=== PATIENT | female | born 1990 | race Caucasian/White ===

== ENCOUNTER 2017-05-15 17:09 | Emergency (ER) | payer OTHER ==
--- NOTE | 2017-05-15 17:34 | PDOC ---
Rapid Medical Evaluation Medical Evaluation: Allergies Allergy/AdvReac Type Severity Reaction Status Date / Time No Known Allergies Allergy Verified 06/13/16 21:05 05/15/17 17:32 Pt presents to the ED: pain to left upper leg/hip x 2 yrs after falling, no deformity, takes no meds for it, worse with the cold air Pt on brief exam: ambulatory, no deformity. Pt ordered for: none Pt to proceed to the ED Discharge Disposition - Diagnosis Leg pain - Referrals - Patient Instructions - Post Discharge Activity
[2017-05-15 17:36] VITALS: BP 137/78; PULSE 101; TEMP 98.6; BMI 20.3
--- NOTE | 2017-05-15 19:00 | PDOC ---
History of Present Illness - General Chief Complaint: Pain Stated Complaint: LT LEG PAIN Time Seen by Provider: 05/15/17 17:32 History Source: Patient Exam Limitations: No Limitations - History of Present Illness Initial Comments: 05/15/17 19:28 26-year-old female with no medical history presents to the emergency department complaining of right hip pain. Patient states she slipped and fell 2-3 years ago and landed on her right hip. Patient states pain is described as 2/10 dull nonradiating intermittent discomfort which is exacerbated during the cold weather but alleviated at rest. Patient states she seen an orthopedic surgeon 3 years ago and was told that she has a contusion and to take Tylenol or Motrin for the pain. Patient denies any new injury/fall/trauma. Patient denies neck/ back pain, no extremity numbness or tingling sensation. Timing/Duration: other (x2-3 years) Past History - Past Medical History Allergies/Adverse Reactions: Allergies Allergy/AdvReac Type Severity Reaction Status Date / Time No Known Allergies Allergy Verified 05/15/17 17:33 Home Medications: Ambulatory Orders NK [No Known Home Medication] 05/15/17 Asthma: No Cancer: No Cardiac Disorders: No COPD: No Diabetes: No HTN: No Seizures: No Thyroid Disease: No Other medical history: DENIES. - Suicide/Smoking/Psychosocial Hx Smoking History: Never smoked Have you smoked in the past 12 months: No Hx Alcohol Use: No Drug/Substance Use Hx: No Hx Substance Use Treatment: No Review of Systems - Review of Systems Able to Perform ROS?: Yes Comments:: 05/15/17 19:01 CONSTITUTIONAL: Absent: fever, chills, diaphoresis, generalized weakness, malaise, loss of appetite HEENT: Absent: rhinorrhea, nasal congestion, throat pain, throat swelling, difficulty swallowing, mouth swelling, ear pain, eye pain, visual Changes CARDIOVASCULAR: Absent: chest pain, loss of consciousness, palpitations, irregular heart rate, peripheral edema RESPIRATORY: Absent: cough, shortness of breath, dyspnea with exertion, orthopnea, wheezing, stridor, hemoptysis GASTROINTESTINAL: Absent: abdominal pain, abdominal distension, nausea, vomiting, diarrhea, constipation, melena, hematochezia GENITOURINARY: Absent: dysuria, frequency, urgency, hesitancy, hematuria, flank pain, genital pain MUSCULOSKELETAL: Absent: myalgia, arthralgia, joint swelling SKIN: Absent: rash, itching, pallor HEMATOLOGIC/IMMUNOLOGIC: Absent: easy bleeding, easy bruising, lymphadenopathy, frequent infections ENDOCRINE: Absent: unexplained weight gain, unexplained weight loss, heat intolerance, cold intolerance NEUROLOGIC: Absent: headache, focal weakness or paresthesias, dizziness, unsteady gait, seizure, mental status changes, bladder or bowel incontinence PSYCHIATRIC: Absent: anxiety, depression, suicidal or homicidal ideation, hallucinations. Is the patient limited [place] proficient: No *Physical Exam - Vital Signs Last Vital Signs Temp Pulse Resp BP Pulse Ox 98.6 F 101 H 19 137/78 98 05/15/17 17:33 05/15/17 17:33 05/15/17 17:33 05/15/17 17:33 05/15/17 17:33 - Physical Exam Comments: 05/15/17 19:01 GENERAL: Well developed, well nourished. Awake and alert. No acute distress. HEENT: Normocephalic, atraumatic. PERRLA, EOMI. No conjunctival pallor. Sclera are non- icteric. Moist mucous membranes. Oropharynx is clear. NECK: Supple. Full ROM. No JVD. Carotid pulses 2+ and symmetric, without bruits. No thyromegaly. No lymphadenopathy. CARDIOVASCULAR: Regular rate and rhythm. No murmurs, rubs, or gallops. Distal pulses are 2+ and symmetric. PULMONARY: No evidence of respiratory distress. Lungs clear to auscultation bilaterally. No wheezing, rales or rhonchi. ABDOMINAL: Soft. Non-tender. Non-distended. No rebound or guarding. No organomegaly. Normoactive bowel sounds. MUSCULOSKELETAL Normal range of motion at all joints. No bony deformities or tenderness. No CVA tenderness. EXTREMITIES: No cyanosis. No clubbing. No edema. No calf tenderness. SKIN: Warm and dry. Normal capillary refill. No rashes. No jaundice. NEUROLOGICAL: Alert, awake, appropriate. Cranial nerves 2-12 intact. No deficits to light touch and temperature in face, upper extremities and lower extremities. No motor deficits in the in face, upper extremities and lower extremities. Normoreflexic in the upper and lower extremities. Normal speech. Toes are down- going bilaterally. Gait is normal without ataxia. PSYCHIATRIC: Cooperative. Good eye contact. Appropriate mood and affect. Patient ambulating well in the emergency department and was seen hopping up and down while carrying her young child. *DC/Admit/Observation/Transfer Diagnosis at time of Disposition: Chronic right hip pain - Discharge Dispostion Disposition: HOME Condition at time of disposition: Stable Admit: No - Referrals Referrals: Shaylee Jacobson MD [Primary Care Provider] - - Patient Instructions Printed Discharge Instructions: DI for Chronic Pain -- Adult Additional Instructions: Tylenol or motrin as needed for pain Rest Elevate Follow up with your orthopedic surgeon or the one listed on the discharge form. Return to the ER for severe/persistent/worsening symptoms, extremity numbness/ tingling sensation. - Post Discharge Activity
== END 2017-05-15 19:03 | disposition home or self-care (01) ==
LOC: JERFT 17:09
DX: M25.511 Pain in right shoulder (principal); G89.29 Other chronic pain; Z91.81 History of falling
CPT/HCPCS: 99281-25

== ENCOUNTER 2017-12-04 13:56 | Emergency (ER) | payer OTHER ==
[2017-12-04 14:14] VITALS: BP 136/84; PULSE 100; TEMP 97.8; BMI 23.3
--- NOTE | 2017-12-04 14:41 | PDOC ---
History of Present Illness - General Chief Complaint: Chest Pain Stated Complaint: CHEST PAIN Time Seen by Provider: 12/04/17 14:34 History Source: Patient Exam Limitations: No Limitations Past History - Past Medical History Allergies/Adverse Reactions: Allergies Allergy/AdvReac Type Severity Reaction Status Date / Time No Known Allergies Allergy Verified 05/15/17 17:33 Home Medications: Ambulatory Orders NK [No Known Home Medication] 05/15/17 Asthma: No Cancer: No Cardiac Disorders: No CVA: No COPD: No Diabetes: No HTN: No Seizures: No Thyroid Disease: No Other medical history: DENIES - Suicide/Smoking/Psychosocial Hx Smoking History: Never smoked Have you smoked in the past 12 months: No Hx Alcohol Use: No Drug/Substance Use Hx: No Hx Substance Use Treatment: No *Physical Exam - Vital Signs Last Vital Signs Temp Pulse Resp BP Pulse Ox 97.8 F 100 H 18 136/84 99 12/04/17 14:10 12/04/17 14:10 12/04/17 14:10 12/04/17 14:10 12/04/17 14:10 *DC/Admit/Observation/Transfer - Referrals Referrals: Shaylee Jacobson MD [Primary Care Provider] - - Patient Instructions - Post Discharge Activity
--- NOTE | 2017-12-04 14:55 | PDOC ---
History of Present Illness - General Chief Complaint: Chest Pain Stated Complaint: CHEST PAIN Time Seen by Provider: 12/04/17 14:34 - History of Present Illness Initial Comments: 26-year-old female without comorbidities presents for evaluation of chest pain 3 days. She describes her pain as sharp exacerbated deep breathing minimally relieved with rest. No radiation of symptoms. She points to the left sternal border and the left breast as the area of her discomfort 12/04/17 14:53 Past History - Past Medical History Allergies/Adverse Reactions: Allergies Allergy/AdvReac Type Severity Reaction Status Date / Time No Known Allergies Allergy Verified 05/15/17 17:33 Home Medications: Ambulatory Orders NK [No Known Home Medication] 05/15/17 Asthma: No Cancer: No Cardiac Disorders: No CVA: No COPD: No Diabetes: No HTN: No Seizures: No Thyroid Disease: No Other medical history: DENIES - Suicide/Smoking/Psychosocial Hx Smoking History: Never smoked Have you smoked in the past 12 months: No Hx Alcohol Use: No Drug/Substance Use Hx: No Hx Substance Use Treatment: No Review of Systems - Review of Systems Cardiac (ROS): Yes: See HPI, Chest Pain All Other Systems: Reviewed and Negative *Physical Exam - Vital Signs Last Vital Signs Temp Pulse Resp BP Pulse Ox 97.8 F 100 H 18 136/84 99 12/04/17 14:10 12/04/17 14:10 12/04/17 14:10 12/04/17 14:10 12/04/17 14:10 - Physical Exam Comments: GENERAL: The patient is awake, alert, and fully oriented, in no acute distress. HEAD: Normal with no signs of trauma. EYES: sclera anicteric, conjunctiva clear. ENT: Ears normal NECK: Normal range of motion LUNGS: Breath sounds equal, clear to auscultation bilaterally. No wheezes, and no crackles. HEART: S1 and S2 without murmur, rub or gallop. ABDOMEN: Soft, nontender, normoactive bowel sounds. No guarding, no rebound. No masses. EXTREMITIES: Normal range of motion, no edema. No clubbing or cyanosis. No cords, erythema, or tenderness. NEUROLOGICAL: Cranial nerves II through XII grossly intact. Normal speech, normal gait. PSYCH: Normal mood, normal affect. SKIN: Warm, Dry, normal turgor, no rashes or lesions noted. 12/04/17 14:54 ED Treatment Course - LABORATORY CBC & Chemistry Diagram: 12/04/17 15:05 12/04/17 15:05 Medical Decision Making - Medical Decision Making I will do a d-dimer on this 26-year-old female with pleuritic chest pain with no risk factors for PE she is tachycardic 12/04/17 14:54 12/04/17 17:46 CT is negative this is most likely costochondritis I will send her home with an anti-inflammatory and close primary care follow-up *DC/Admit/Observation/Transfer Diagnosis at time of Disposition: Costochondral chest pain - Discharge Dispostion Disposition: HOME Condition at time of disposition: Stable Decision to Admit order: No - Referrals Referrals: Shaylee Jacobson MD [Primary Care Provider] - - Patient Instructions Printed Discharge Instructions: DI for Atypical Chest Pain, Costochondritis, DI for Costochondritis Additional Instructions: Your CAT scan today was normal. Please return to the emergency room should her symptoms worsen or go unresolved. Follow-up with your primary care physician in one to 2 days for further evaluation and treatment options. He may take Tylenol and Motrin for the pain as directed. - Post Discharge Activity
[2017-12-04 15:11] LABS: BASO % 1.1 % (0-2.0); EOS % 0.9 % (0-4.5); HEMATOCRIT 36.9 % (32.4-45.2); HEMOGLOBIN 12.2 GM/dL (10.7-15.3); MCH 27.5 pg (25.7-33.7); MEAN CELL VOLUME 83.4 fl (80-96); MEAN PLT VOLUME 10.5 fl (7.5-11.1); MONO % 5.5 % (3.8-10.2); NEUT % 58.5 % (42.8-82.8); PLATELET COUNT 167 K/MM3 (134-434); RBC 4.43 M/mm3 (3.60-5.2); RDW 15.1 % (11.6-15.6); WHITE BLOOD COUNT 8.7 K/mm3 (4.0-10.0)
[2017-12-04 15:29] LABS: CHLORIDE 108 mmol/L (98-107); POTASSIUM 3.8 mmol/L (3.5-5.1); SODIUM 142 mmol/L (136-145)
[2017-12-04 15:36] LABS: ALBUMIN 4.2 g/dl (3.4-5.0); ANION GAP 6 (8-16); BILIRUBIN,TOTAL 0.3 mg/dL (0.2-1.0); BLOOD UREA NITROGEN 13 mg/dL (7-18); CALCIUM 9.2 mg/dL (8.5-10.1); CO2 28 mmol/L (21-32); CREATININE 0.7 mg/dL (0.55-1.02); GLUCOSE,RANDOM 92 mg/dL (74-106); SGOT/AST 15 U/L (15-37); SGPT/ALT 33 U/L (12-78); TOT PROT 7.8 g/dl (6.4-8.2)
[2017-12-04 15:37] LABS: ALK PHOS 71 U/L (45-117)
--- NOTE | 2017-12-06 11:19 | EKG ---
Test Reason : Blood Pressure : / mmHG Vent. Rate : 086 BPM Atrial Rate : 086 BPM P-R Int : 134 ms QRS Dur : 084 ms QT Int : 342 ms P-R-T Axes : 044 001 037 degrees QTc Int : 409 ms NORMAL SINUS RHYTHM NORMAL ECG NO PREVIOUS ECGS AVAILABLE Confirmed by LILLIAN CROCKER, YESSICA ([id number]) on 12/06/2017 11:19:14 AM Referred By: Confirmed By:YESSICA SNYDER MD
== END 2017-12-04 17:56 | disposition home or self-care (01) ==
LOC: JERFT 13:56
DX: M94.0 Chondrocostal junction syndrome [Tietze] (principal)
CPT/HCPCS: 36415; 71275-TC; 80053; 84703; 85025; 85379; 93005; 93010; 99281-25

== ENCOUNTER 2018-11-10 22:18 | Emergency (ER) | payer OTHER ==
[2018-11-10 22:38] VITALS: BMI 22.4
--- NOTE | 2018-11-10 22:55 | PDOC ---
History of Present Illness - General Chief Complaint: Pain Stated Complaint: ABD PAIN Time Seen by Provider: 11/10/18 22:54 - History of Present Illness Initial Comments: 11/10/18 23:39 Ms. Henry is a 27 yo female w/ no significant pmh who presents for evaluation of 3 day history of LUQ abdominal pain. Patient denies any trauma to area however reports she has been nauseated twice today. Presents as pain got worse today and her sister who is accompanying her urged her to come. Denies any other symptoms at this time including shortness of breath. The patient denies chest pain, shortness of breath, headache and dizziness. Denies fever, chills, vomit, diarrhea and constipation. Denies dysuria, frequency, urgency and hematuria. Past History - Past Medical History Allergies/Adverse Reactions: Allergies Allergy/AdvReac Type Severity Reaction Status Date / Time No Known Allergies Allergy Verified 11/10/18 22:38 Home Medications: Ambulatory Orders NK [No Known Home Medication] 05/15/17 Asthma: No Cancer: No Cardiac Disorders: No CVA: No COPD: No Diabetes: No HTN: No Seizures: No Thyroid Disease: No - Suicide/Smoking/Psychosocial Hx Smoking History: Never smoked Have you smoked in the past 12 months: No Hx Alcohol Use: No Drug/Substance Use Hx: No Hx Substance Use Treatment: No Review of Systems - Review of Systems Comments:: 11/10/18 23:43 GENERAL/CONSTITUTIONAL: No fever or chills. No weakness. HEAD, EYES, EARS, NOSE AND THROAT: No change in vision. No ear pain or discharge. No sore throat. CARDIOVASCULAR: No chest pain or shortness of breath RESPIRATORY: No cough, wheezing, or hemoptysis. GASTROINTESTINAL: +LUQ abdominal pain w/ nausea x2 today now resolved. No vomiting, diarrhea or constipation. GENITOURINARY: No dysuria, frequency, or change in urination. MUSCULOSKELETAL: No joint or muscle swelling or pain. No neck or back pain. SKIN: No rash NEUROLOGIC: No headache, vertigo, loss of consciousness, or change in strength/ sensation. ENDOCRINE: No increased thirst. No abnormal weight change HEMATOLOGIC/LYMPHATIC: No anemia, easy bleeding, or history of blood clots. ALLERGIC/IMMUNOLOGIC: No hives or skin allergy. *Physical Exam - Vital Signs Last Vital Signs Temp Pulse Resp BP Pulse Ox 98.1 F 94 H 18 131/74 97 11/10/18 22:35 11/10/18 22:35 11/10/18 22:35 11/10/18 22:35 11/10/18 22:35 - Physical Exam Comments: 11/10/18 23:47 GENERAL: Awake, alert, and fully oriented, in no acute distress HEAD: No signs of trauma, normocephalic, atraumatic EYES: PERRLA, EOMI, sclera anicteric, conjunctiva clear ENT: Auricles normal inspection, hearing grossly normal, nares patent, oropharynx clear without exudates. Moist mucosa NECK: Normal ROM, supple, no lymphadenopathy, JVD, or masses LUNGS: No distress, speaks full sentences, clear to auscultation bilaterally HEART: Regular rate and rhythm, normal S1 and S2, no murmurs, rubs or gallops, peripheral pulses normal and equal bilaterally. ABDOMEN: +Diffuse abdominal TTP, greatest in LUQ. Otherwise soft, normoactive bowel sounds. No guarding, no rebound. No masses EXTREMITIES: Normal inspection, Normal range of motion, no edema. No clubbing or cyanosis. NEUROLOGICAL: Cranial nerves II through XII grossly intact. Normal speech, normal gait, no focal sensorimotor deficits SKIN: Warm, Dry, normal turgor, no rashes or lesions noted. ED Treatment Course - LABORATORY CBC & Chemistry Diagram: 11/10/18 23:35 11/10/18 23:35 Medical Decision Making - Medical Decision Making 11/11/18 02:08 Ms. Henry is a 27 yo female w/ pmh as described who presents for evaluation of non-specific abdominal pain. Patient evaluated with labs as below for r/o infectious vs. electrolyte vs. cardiac causes. Patient labs grossly wnl. Patient evaluated with CT abd/pelvis w/ findings of L 3.6cm ovarian cyst w/ trace fluid and bilateral sacroilitis. No concern for other acute process. Patient will be discharged to home for further outpatient evaluation as needed by AMBULATORY CARE NURSE. Laboratory Results - last 24 hr 11/10/18 11/10/18 11/10/18 23:35 23:35 23:35 WBC 10.2 H RBC 4.50 Hgb 11.9 Hct 36.8 MCV 82.0 MCH 26.4 MCHC 32.2 RDW 16.8 H Plt Count 178 MPV 10.8 Absolute Neuts (auto) 5.8 Neutrophils % 56.8 Lymphocytes % 35.2 Monocytes % 5.8 Eosinophils % 1.3 Basophils % 0.9 Nucleated RBC % 0 Sodium 140 Potassium 3.8 Chloride 106 Carbon Dioxide 26 Anion Gap 7 L BUN 10.4 Creatinine 0.7 Est GFR (CKD-EPI)AfAm 135.70 Est GFR (CKD-EPI)NonAf 117.08 Random Glucose 97 Calcium 8.9 Total Bilirubin 0.3 AST 18 ALT 27 Alkaline Phosphatase 71 Creatine Kinase Troponin I Total Protein 7.7 Albumin 4.1 Urine Color Yellow Urine Appearance Clear Urine pH 7.0 Ur Specific [place] 1.008 L Urine Protein Negative Urine Glucose (UA) Negative Urine Ketones Negative Urine Blood Negative Urine Nitrite Negative Urine Bilirubin Negative Urine Urobilinogen 0.2 Ur Leukocyte Esterase Negative Urine HCG, Qual Negative 11/10/18 23:35 WBC RBC Hgb Hct MCV MCH MCHC RDW Plt Count MPV Absolute Neuts (auto) Neutrophils % Lymphocytes % Monocytes % Eosinophils % Basophils % Nucleated RBC % Sodium Potassium Chloride Carbon Dioxide Anion Gap BUN Creatinine Est GFR (CKD-EPI)AfAm Est GFR (CKD-EPI)NonAf Random Glucose Calcium Total Bilirubin AST ALT Alkaline Phosphatase Creatine Kinase 66 Troponin I < 0.02 Total Protein Albumin Urine Color Urine Appearance Urine pH Ur Specific [place] Urine Protein Urine Glucose (UA) Urine Ketones Urine Blood Urine Nitrite Urine Bilirubin Urine Urobilinogen Ur Leukocyte Esterase Urine HCG, Qual *DC/Admit/Observation/Transfer Diagnosis at time of Disposition: Abdominal pain Qualifiers: Abdominal location: unspecified location Qualified Code(s): R10.9 - Unspecified abdominal pain - Discharge Dispostion Disposition: HOME - Referrals - Patient Instructions Printed Discharge Instructions: DI for Abdominal Pain-Adult Additional Instructions: You were evaluated today in the ER for your pain. We performed laboratory evaluation as well as CT Abdomen/Pelvis and found you to have a 3.6cm L ovarian cyst. No other emergent findings were discovered and we believe you are safe for discharge home. Please follow-up with AMBULATORY CARE NURSE early next week for further evaluation. You may take motrin or tylenol per package instructions for further pain control. Return to ER if any fever, chills, increase in pain, or other concerning symptoms. - Post Discharge Activity
[2018-11-10] MEDS ORDERED: SODIUM CHLORIDE 1,000 ML IV STA (23:16)
[2018-11-10] MEDS ORDERED: ACETAMINOPHEN 1000 MG/100 ML VIAL (NON FORMULARY) IVPB ONE (23:17)
[2018-11-10] MEDS ORDERED: ACETAMINOPHEN INJECTION 100 ML IVPB ONE (23:23)
[2018-11-10 23:49] LABS: URINE APPEARANCE CLEAR; URINE BILIRUBIN NEGATIVE (NEGATIVE); URINE COLOR YELLOW; URINE GLUCOSE (UA) NEGATIVE (NEGATIVE); URINE KETONE NEGATIVE (NEGATIVE); URINE LEUK ESTERASE NEGATIVE (NEGATIVE); URINE NITRITE NEGATIVE (NEGATIVE); URINE PROTEIN NEGATIVE (NEGATIVE); URINE UROBILINOGEN 0.2 mg/dL (0.2-1.0)
[2018-11-10 23:52] LABS: BASO % 0.9 % (0-2.0); EOS % 1.3 % (0-4.5); HCG,QUALITATIVE URINE Negative; HEMATOCRIT 36.8 % (32.4-45.2); HEMOGLOBIN 11.9 GM/dL (10.7-15.3); LYMPH % 35.2 % (8-40); MCH 26.4 pg (25.7-33.7); MCHC 32.2 g/dl (32.0-36.0); MONO % 5.8 % (3.8-10.2); NEUT % 56.8 % (42.8-82.8); RDW 16.8 % (11.6-15.6); WHITE BLOOD COUNT 10.2 K/mm3 (4.0-10.0)
[2018-11-11 00:03] LABS: PLATELET COUNT 178 K/MM3 (134-434)
[2018-11-11 00:04] LABS: MEAN PLT VOLUME 10.8 fl (7.5-11.1)
[2018-11-11] MEDS ORDERED: FAMOTIDINE 20 MG/50 ML IVPB 20 MG/50 ML MG IVPB ONE (00:16)
[2018-11-11] MEDS ORDERED: MAG HYDROX/AL HYDROX/SIMETH 30 ML UNIT-DOSE CUP PO ONE (00:16)
[2018-11-11 00:19] LABS: ALBUMIN 4.1 g/dl (3.4-5.0); BILIRUBIN,TOTAL 0.3 mg/dL (0.2-1); BLOOD UREA NITROGEN 10.4 mg/dL (7-18); CALCIUM 8.9 mg/dL (8.5-10.1); CREATININE 0.7 mg/dL (0.55-1.3); POTASSIUM 3.8 mmol/L (3.5-5.1); TOT PROT 7.7 g/dl (6.4-8.2)
[2018-11-11] MEDS ORDERED: MAG HYDROX/AL HYDROX/SIMETH 30 ML UNIT-DOSE CUP ONE (00:22)
--- NOTE | 2018-11-11 00:22 | PDOC ---
Attending Attestation - Resident Resident Name: Med Aqiuno - ED Attending Attestation I have performed the following: I have examined & evaluated the patient, The case was reviewed & discussed with the resident, I agree w/resident's findings & plan, Exceptions are as noted - HPI HPI: 11/11/18 00:17 27 F with no PMH presents to ED with LUQ pain. Pt states it started 3 days ago. It is non-radiating, constant. Not exacerbated by food. Worse with movement. Pt denies CP/SOB. Denies N/V/D. Denies dysuria. Denies any prior surgeries. - Physicial Exam PE: 11/11/18 00:18 "GENERAL: Awake, alert, and fully oriented, in no acute distress. HEAD: No signs of trauma EYES: PERRLA, EOMI, sclera anicteric, conjunctiva clear ENT: Auricles normal inspection, hearing grossly normal, nares patent, oropharynx clear without exudates. Moist mucosa NECK: Nontender, no stepoffs, Normal ROM, supple, no lymphadenopathy, JVD, or masses LUNGS: Breath sounds equal, clear to auscultation bilaterally. No wheezes, and no crackles HEART: Regular rate and rhythm, normal S1 and S2, no murmurs, rubs or gallops ABDOMEN: + diffuse TTP worst in LUQ, normoactive bowel sounds. No guarding, no rebound. No masses EXTREMITIES: Normal range of motion, no edema. No clubbing or cyanosis. No cords, erythema, or tenderness NEUROLOGICAL: Cranial nerves II through XII intact. 5/5 strength and sensation in all extremities, Normal speech, normal gait, normal cerebellar function SKIN: Warm, Dry, normal turgor, no rashes or lesions noted. - Medical Decision Making 11/11/18 00:21 27 F with LUQ pain. Suspect gastritis vs PUD. However, given diffuse abdominal tenderness, will obtain CT to r/o surgical process. - Labs, lipase - UA, UPT - GI cocktail - CTAP Labs unremarkable CT negative for acute process Pt is well appearing, with normal vitals. Clinically stable for DC at this time. I discussed the physical exam findings, ancillary test results and final diagnoses with the patient. I answered all of the patient's questions. The patient was satisfied with the care received and felt comfortable with the discharge plan and treatment plan. The patient agrees to follow up with the primary care physician within 24-72 hours.
[2018-11-11 02:25] VITALS: BP 110/67; PULSE 78; TEMP 98.6
--- NOTE | 2018-11-11 13:08 | EKG ---
Test Reason : Blood Pressure : / mmHG Vent. Rate : 084 BPM Atrial Rate : 084 BPM P-R Int : 146 ms QRS Dur : 092 ms QT Int : 356 ms P-R-T Axes : 051 004 036 degrees QTc Int : 420 ms NORMAL SINUS RHYTHM NORMAL ECG WHEN COMPARED WITH ECG OF 04-DEC-2017 14:09, NO SIGNIFICANT CHANGE WAS FOUND Confirmed by MD WHITING MOYSES ([id number]) on 11/11/2018 1:08:04 PM Referred By: Confirmed By:MAKENZIE WHITING MD
== END 2018-11-11 02:25 | disposition home or self-care (01) ==
LOC: JER 22:18
PROC: 3E033GC Introduction of Other Therapeutic Substance into Peripheral Vein, Percutaneous Approach (ICD-10-PCS; principal; 2018-11-10)
PROC: 3E033NZ Introduction of Analgesics, Hypnotics, Sedatives into Peripheral Vein, Percutaneous Approach (ICD-10-PCS; 2018-11-10)
DX: R10.9 Unspecified abdominal pain (principal)
CPT/HCPCS: 36415; 74177-TC; 80053; 81003; 82550; 84484; 84703; 85025; 87086; 93005; 93010; 96365; 96375; 99282-25; J0131; J7030

== ENCOUNTER 2019-06-11 16:41 | Emergency (ER) | payer OTHER ==
[2019-06-11] MEDS ORDERED: SODIUM CHLORIDE 1,000 ML IV STA (17:18)
[2019-06-11 17:19] VITALS: TEMP 98; BMI 22.4
--- NOTE | 2019-06-11 17:29 | PDOC ---
Rapid Medical Evaluation Chief Complaint: Pain, Acute Time Seen by Provider: 06/11/19 17:17 Medical Evaluation: Allergies Allergy/AdvReac Type Severity Reaction Status Date / Time No Known Allergies Allergy Verified 06/11/19 17:16 Vital Signs Temp Pulse Resp BP Pulse Ox 98 F 103 H 18 107/75 98 06/11/19 17:17 06/11/19 17:17 06/11/19 17:17 06/11/19 17:17 06/11/19 17:17 06/11/19 17:26 Pt c/o: 19 weeks , + dizziness , worse with standing, no other complaints Pt on brief exam: appears dry, pt ordered for: labs, urine, ekg, orthostatic, ivf Pt to proceed to the ED Discharge Disposition - Diagnosis Dizziness - Discharge Dispostion Disposition: HOME Condition at time of disposition: Improved - Referrals Referrals: Shaylee Jacobson MD [Primary Care Provider] - - Patient Instructions Printed Discharge Instructions: Eating for Appropriate Weight Gain During Additional Instructions: Drink plenty of fluids. Follow-up with your doctor as soon as possible Return to the emergency room for any worsening symptoms - Post Discharge Activity Work/School Note: Back to Work
[2019-06-11 17:43] LABS: BASO % 0.6 % (0-2.0); EOS % 0.6 % (0-4.5); HEMATOCRIT 37.3 % (32.4-45.2); HEMOGLOBIN 12.2 GM/dL (10.7-15.3); MCH 28.8 pg (25.7-33.7); MCHC 32.6 g/dl (32.0-36.0); MEAN CELL VOLUME 88.4 fl (80-96); MEAN PLT VOLUME 10.1 fl (7.5-11.1); MONO % 4.7 % (3.8-10.2); NEUT % 74.1 % (42.8-82.8); PLATELET COUNT 170 K/MM3 (134-434); RBC 4.22 M/mm3 (3.60-5.2); WHITE BLOOD COUNT 11.4 K/mm3 (4.0-10.0)
[2019-06-11 17:48] LABS: EPI CELLS 3.7 /HPF (0-5/HPF); HYALINE CASTS 5 /lpf (0-8); PH,URINE 5.5 (5.0-8.0); URINE APPEARANCE CLEAR; URINE BACTERIA 84.7 /hpf (NEGATIVE); URINE BILIRUBIN NEGATIVE (NEGATIVE); URINE COLOR YELLOW; URINE GLUCOSE (UA) NEGATIVE (NEGATIVE); URINE KETONE 2+ (NEGATIVE); URINE LEUK ESTERASE 2+ (NEGATIVE); URINE NITRITE NEGATIVE (NEGATIVE); URINE PROTEIN NEGATIVE (NEGATIVE); URINE RBC 1 /hpf (0-4); URINE UROBILINOGEN 0.2 mg/dL (0.2-1.0); URINE WBC 12 /hpf (0-5)
[2019-06-11 17:51] VITALS: BP 109/62; PULSE 89
[2019-06-11 18:18] LABS: ALBUMIN 3.2 g/dl (3.4-5.0); BILIRUBIN,TOTAL 0.3 mg/dL (0.2-1); BLOOD UREA NITROGEN 6.2 mg/dL (7-18); CALCIUM 8.9 mg/dL (8.5-10.1); CREATININE 0.4 mg/dL (0.55-1.3); POTASSIUM 3.7 mmol/L (3.5-5.1); TOT PROT 7.4 g/dl (6.4-8.2)
[2019-06-11] MEDS ORDERED: DEXTROSE 5%-NORMAL SALINE 500 ML IV ONE (20:51)
--- NOTE | 2019-06-11 21:12 | PDOC ---
History of Present Illness - General Chief Complaint: Pain, Acute Stated Complaint: DIZZINESS/ABD PAIN Time Seen by Provider: 06/11/19 17:17 History Source: Patient - History of Present Illness Initial Comments: 06/11/19 23:14 28-year-old female 19 weeks complaining of dizziness, nausea since this morning. patient denies urinary symptoms, vaginal bleeding, pelvic pain 06/12/19 05:35 Past History - Past Medical History Allergies/Adverse Reactions: Allergies Allergy/AdvReac Type Severity Reaction Status Date / Time No Known Allergies Allergy Verified 06/11/19 17:16 Home Medications: Ambulatory Orders Ferrous Gluconate [Fergon -] 324 mg PO DAILY 06/11/19 95/Iron Fum/Folic/Dha [ + Dha Combo Pack] 1 each PO DAILY 06/11 Asthma: No Cancer: No Cardiac Disorders: No CVA: No COPD: No Diabetes: No HTN: No Seizures: No Thyroid Disease: No - Psycho Social/Smoking Cessation Hx Smoking History: Never smoked Have you smoked in the past 12 months: No Hx Alcohol Use: No Drug/Substance Use Hx: No Hx Substance Use Treatment: No Review of Systems - Review of Systems Able to Perform ROS?: Yes Is the patient limited Cymro proficient: No Constitutional: No: Symptoms Reported, See HPI, Chills, Diaphoresis, Fever, Loss of Appetite, Malaise, Night Sweats, Weakness, Weight Stable, Unintentional Wgt. Loss, Unexplained wgt Loss, Other ABD/GI: Yes: Nausea Neurological: Yes: Dizziness *Physical Exam - Vital Signs Last Vital Signs Temp Pulse Resp BP Pulse Ox 98 F 89 18 109/62 98 06/11/19 17:17 06/11/19 17:50 06/11/19 17:17 06/11/19 17:50 06/11/19 17:17 ED Treatment Course - LABORATORY CBC & Chemistry Diagram: 06/11/19 17:30 06/11/19 17:32 - ADDITIONAL ORDERS Additional order review: Laboratory Results 06/11/19 06/11/19 17:32 17:30 Sodium 135 L Potassium 3.7 Chloride 104 Carbon Dioxide 22 Anion Gap 8 BUN 6.2 L Creatinine 0.4 L Est GFR (CKD-EPI)AfAm 161.99 Est GFR (CKD-EPI)NonAf 139.77 Random Glucose 69 L Calcium 8.9 Magnesium 2.0 Total Bilirubin 0.3 AST 14 L ALT 18 Alkaline Phosphatase 66 Total Protein 7.4 Albumin 3.2 L Urine Color Yellow Urine Appearance Clear Urine pH 5.5 D Ur Specific [place] 1.015 Urine Protein Negative Urine Glucose (UA) Negative Urine Ketones 2+ H Urine Blood Negative Urine Nitrite Negative Urine Bilirubin Negative Urine Urobilinogen 0.2 Ur Leukocyte Esterase 2+ H Urine WBC (Auto) 12 Urine RBC (Auto) 1 Urine Casts (Auto) 5 U Epithel Cells (Auto) 3.7 Urine Bacteria (Auto) 84.7 06/11/19 17:30 RBC 4.22 MCV 88.4 MCHC 32.6 RDW 16.0 H MPV 10.1 Neutrophils % 74.1 D Lymphocytes % 20.0 D Monocytes % 4.7 Eosinophils % 0.6 Basophils % 0.6 ED Progress Note - Progress Note Progress Note: 06/12/19 05:37 A: dizziness in P: cbc cmp OB US Medical Decision Making - Medical Decision Making 06/11/19 23:31 patient is feeling better . will d/ chome Discharge - Discharge Information Problems reviewed: Yes Clinical Impression/Diagnosis: Dizziness Condition: Improved Disposition: HOME - Follow up/Referral Referrals: Shaylee Jacobson MD [Primary Care Provider] - - Patient Discharge Instructions Patient Printed Discharge Instructions: Eating for Appropriate Weight Gain During Additional Instructions: Drink plenty of fluids. Follow-up with your doctor as soon as possible Return to the emergency room for any worsening symptoms - Post Discharge Activity Work/Back to School Note: Back to Work
--- NOTE | 2019-06-11 23:49 | PDOC ---
*Physical Exam - Vital Signs Last Vital Signs Temp Pulse Resp BP Pulse Ox 98 F 89 18 109/62 98 06/11/19 17:17 06/11/19 17:50 06/11/19 17:17 06/11/19 17:50 06/11/19 17:17 ED Treatment Course - LABORATORY CBC & Chemistry Diagram: 06/11/19 17:30 06/11/19 17:32 - ADDITIONAL ORDERS Additional order review: Laboratory Results 06/11/19 06/11/19 06/11/19 22:44 17:32 17:30 Sodium 135 L Potassium 3.7 Chloride 104 Carbon Dioxide 22 Anion Gap 8 BUN 6.2 L Creatinine 0.4 L Est GFR (CKD-EPI)AfAm 161.99 Est GFR (CKD-EPI)NonAf 139.77 POC Glucometer 87 Random Glucose 69 L Calcium 8.9 Magnesium 2.0 Total Bilirubin 0.3 AST 14 L ALT 18 Alkaline Phosphatase 66 Total Protein 7.4 Albumin 3.2 L Urine Color Yellow Urine Appearance Clear Urine pH 5.5 D Ur Specific [place] 1.015 Urine Protein Negative Urine Glucose (UA) Negative Urine Ketones 2+ H Urine Blood Negative Urine Nitrite Negative Urine Bilirubin Negative Urine Urobilinogen 0.2 Ur Leukocyte Esterase 2+ H Urine WBC (Auto) 12 Urine RBC (Auto) 1 Urine Casts (Auto) 5 U Epithel Cells (Auto) 3.7 Urine Bacteria (Auto) 84.7 06/11/19 06/11/19 22:44 17:30 RBC 4.22 MCV 88.4 MCHC 32.6 RDW 16.0 H MPV 10.1 Neutrophils % 74.1 D Lymphocytes % 20.0 D Monocytes % 4.7 Eosinophils % 0.6 Basophils % 0.6 POC Glucometer 87 - Medications Given in the ED: ED Medications Discontinued Medications Generic Name Dose Route Start Last Admin Trade Name Freq PRN Reason Stop Dose Admin Sodium Chloride 1,000 mls @ 1,000 mls/hr 06/11/19 17:18 06/11/19 22:51 Normal Saline - IV 06/11/19 18:17 1,000 mls/hr ASDIR STA Administration Dextrose/Sodium Chloride 500 mls @ 1,000 mls/hr 06/11/19 20:51 06/11/19 22:51 D5-Ns - IV 06/11/19 21:20 Not Given ONCE ONE Medical Decision Making - Medical Decision Making 06/11/19 23:48 Patient seen by the advanced practice provider under my direct supervision. Ancillary testing reviewed as necessary. I agree with plan as outlined by the advanced practice provider. Discharge - Discharge Information Problems reviewed: Yes Clinical Impression/Diagnosis: Dizziness Disposition: HOME - Follow up/Referral Referrals: Shaylee Jacobson MD [Primary Care Provider] - - Patient Discharge Instructions Patient Printed Discharge Instructions: Eating for Appropriate Weight Gain During Additional Instructions: Drink plenty of fluids. Follow-up with your doctor as soon as possible Return to the emergency room for any worsening symptoms - Post Discharge Activity Work/Back to School Note: Back to Work
--- NOTE | 2019-06-12 11:38 | EKG ---
Test Reason : Blood Pressure : / mmHG Vent. Rate : 094 BPM Atrial Rate : 094 BPM P-R Int : 132 ms QRS Dur : 086 ms QT Int : 336 ms P-R-T Axes : 046 012 051 degrees QTc Int : 420 ms NORMAL SINUS RHYTHM NORMAL ECG WHEN COMPARED WITH ECG OF 10-NOV-2018 23:48, NO SIGNIFICANT CHANGE WAS FOUND Confirmed by Enmanuel Jeffery MD ([id number]) on 06/12/2019 11:38:04 AM Referred By: Confirmed By:Enmanuel Jeffery MD
== END 2019-06-11 23:55 | disposition home or self-care (01) ==
LOC: JER 16:41
PROC: 3E0337Z Introduction of Electrolytic and Water Balance Substance into Peripheral Vein, Percutaneous Approach (ICD-10-PCS; principal; 2019-06-11)
DX: O99.89 Other specified diseases and conditions complicating pregnancy, childbirth and the puerperium (principal); R42 Dizziness and giddiness; Z3A.19 19 weeks gestation of pregnancy
CPT/HCPCS: 36415; 76815; 80053; 81003; 82962; 83735; 85025; 87077; 87086; 93005; 93010; 96360; 99283-25; J7030

== ENCOUNTER 2020-02-10 14:23 | Emergency (ER) | payer OTHER ==
--- NOTE | 2020-02-10 14:39 | PDOC ---
Rapid Medical Evaluation Time Seen by Provider: 02/10/20 14:37 Medical Evaluation: Allergies Allergy/AdvReac Type Severity Reaction Status Date / Time No Known Allergies Allergy Verified 02/10/20 14:37 02/10/20 14:37 I have performed a brief in-person examination on this patient. CC: left sided chest pain x3 days; 3 months PE: Left sided chest tenderness which reproduces pain. Lungs CTAB- limited 2/2 pain. Orders: ekg, CXR Patient will proceed to ED for further evaluation. 02/10/20 14:39 Discharge Disposition - Diagnosis Chest pain - Referrals - Patient Instructions - Post Discharge Activity
[2020-02-10 14:41] VITALS: BP 152/92; PULSE 88; TEMP 97.9; BMI 21.9
[2020-02-10] MEDS ORDERED: KETOROLAC TROMETHAMINE 60 MG/2 ML VIAL IM ONE (17:14)
--- NOTE | 2020-02-10 17:31 | PDOC ---
History of Present Illness - General Chief Complaint: Chest Pain Stated Complaint: SHOULDER PAIN Time Seen by Provider: 02/10/20 14:37 History Source: Patient Exam Limitations: No Limitations Past History - Travel History Traveled outside of the country in the last 30 days: No Close contact w/someone who was outside of country & ill: No - Medical History Allergies/Adverse Reactions: Allergies Allergy/AdvReac Type Severity Reaction Status Date / Time No Known Allergies Allergy Verified 02/10/20 14:37 Home Medications: Ambulatory Orders Ferrous Gluconate [Fergon -] 324 mg PO DAILY 06/11/19 95/Iron Fum/Folic/Dha [ + Dha Combo Pack] 1 each PO DAILY 06/11/19 Ibuprofen 600 mg PO Q6H #30 tablet 02/10/20 Asthma: No Cancer: No Cardiac Disorders: No CVA: No COPD: No Diabetes: No HTN: No Seizures: No Thyroid Disease: No - Reproductive History Is Patient Now?: No - Psycho-Social/Smoking History Smoking History: Never smoked Have you smoked in the past 12 months: No - Substance Abuse Hx (Audit-C & DAST Scrn) How often the patient has a drink containing alcohol: Never Score: In Men: 4 or > Positive; In Women: 3 or > Positive: 0 Screen Result (Pos requires Nsg. Audit-10AR): Negative In the last yr the pt used illegal drug/Rx for NonMed reason: No Score: Yes response is considered Positive: 0 Screen Result (Positive result requires Nsg. DAST-10): Negative Review of Systems - Review of Systems Able to Perform ROS?: Yes Comments:: 02/10/20 17:14 CONSTITUTIONAL: Absent: fever, chills, diaphoresis, generalized weakness, malaise, loss of appetite HEENT: Absent: rhinorrhea, nasal congestion, throat pain, throat swelling, difficulty swallowing, mouth swelling, ear pain, eye pain, visual Changes CARDIOVASCULAR: Present: Chest pain Absent: chest pain, loss of consciousness, palpitations, irregular heart rate, peripheral edema RESPIRATORY: Absent: cough, shortness of breath, dyspnea with exertion, orthopnea, wheezing, stridor, hemoptysis GASTROINTESTINAL: Absent: abdominal pain, abdominal distension, nausea, vomiting, diarrhea, constipation, melena, hematochezia GENITOURINARY: Absent: dysuria, frequency, urgency, hesitancy, hematuria, flank pain, genital pain MUSCULOSKELETAL: Absent: myalgia, arthralgia, joint swelling SKIN: Absent: rash, itching, pallor HEMATOLOGIC/IMMUNOLOGIC: Absent: easy bleeding, easy bruising, lymphadenopathy, frequent infections ENDOCRINE: Absent: unexplained weight gain, unexplained weight loss, heat intolerance, cold intolerance NEUROLOGIC: Absent: headache, focal weakness or paresthesias, dizziness, unsteady gait, seizure, mental status changes, bladder or bowel incontinence PSYCHIATRIC: Absent: anxiety, depression, suicidal or homicidal ideation, hallucinations. Is the patient limited [place] proficient: No *Physical Exam - Vital Signs Last Vital Signs Temp Pulse Resp BP Pulse Ox 97.9 F 88 16 152/92 100 02/10/20 14:37 02/10/20 14:37 02/10/20 14:37 02/10/20 14:37 02/10/20 14:37 - Physical Exam 02/10/20 17:15 GENERAL: Well developed, well nourished. Awake and alert. No acute distress. HEENT: Normocephalic, atraumatic. PERRLA, EOMI. No conjunctival pallor. Sclera are non- icteric. Moist mucous membranes. Supple. Full ROM. No lymphadenopathy. CARDIOVASCULAR: Regular rate and rhythm. No murmurs, rubs, or gallops. Distal pulses are 2+ and symmetric. PULMONARY: No evidence of respiratory distress. Lungs clear to auscultation bilaterally. No wheezing, rales or rhonchi. ABDOMINAL: Soft. Non-tender. Non-distended. No rebound or guarding. No organomegaly. Normoactive bowel sounds. MUSCULOSKELETAL TTP of the L chest wall. Normal range of motion at all joints. No bony deformities or tenderness. No CVA tenderness. EXTREMITIES: No cyanosis. No clubbing. No edema. No calf tenderness. SKIN: Warm and dry. Normal capillary refill. No rashes. No jaundice. NEUROLOGICAL: Alert, awake, appropriate. Cranial nerves 2-12 intact. No deficits to light touch and temperature in face, upper extremities and lower extremities. No motor deficits in the in face, upper extremities and lower extremities. Normoreflexic in the upper and lower extremities. Normal speech. Toes are down-going bilaterally. Gait is normal without ataxia. PSYCHIATRIC: Cooperative. Good eye contact. Appropriate mood and affect. Medical Decision Making - Medical Decision Making 02/10/20 17:31 The patient is a 29-year-old female no past medical history, presents to the ER with left-sided chest pain for the last 3 days. She states she is been lifting her 3-year-old frequently and that she jumped onto her chest. She states that it hurts to touch and that it hurts when takes a deep breath. Denies fevers, chills, palpitations, lightheadedness and dizziness, difficulty breathing. A/P: Chest wall pain On exam patient has reproducible chest wall tenderness along the anterior left chest. Also hurts when she takes a deep breath. Lungs are clear to auscultation bilateral no wheezes rales or rhonchi. EKG shows normal sinus rhythm at a rate of 82, normal intervals and axis. Incomplete right bundle branch block Chest x-ray shows no acute pathology Likely costochondritis Discharge home with return precautions I discussed the physical exam findings, ancillary test results and final diagnoses with the patient. I answered all of the patient's questions. The patient was satisfied with the care received and felt comfortable with the discharge plan and treatment plan. The Patient agrees to follow up with the primary care physician/specialist within 24-72 hours. Return precautions were given. Discharge - Discharge Information Problems reviewed: Yes Clinical Impression/Diagnosis: Chest pain Qualifiers: Chest pain type: unspecified Qualified Code(s): R07.9 - Chest pain, unspecified Condition: Stable Disposition: HOME - Admission No - Follow up/Referral Referrals: Shaylee Jacobson MD [Primary Care Provider] - Enmanuel Jeffery MD [Staff Physician] - - Patient Discharge Instructions Patient Printed Discharge Instructions: DI for Atypical Chest Pain Additional Instructions: You were seen for your chest pain today. Your EKG and chest x-ray were normal Your pain is most likely due to costochondritis or muscle spasm. You may take Tylenol or Motrin as needed for the pain. Follow the dosing instruction on the bottle. You may also follow-up with cardiology if her symptoms are not improving. A referral has been provided to you. Return to the ER for worsening chest pain, difficulty breathing, shortness of breath or if you have any changes in your symptoms. - Post Discharge Activity
--- NOTE | 2020-02-11 09:55 | EKG ---
Test Reason : Blood Pressure : / mmHG Vent. Rate : 082 BPM Atrial Rate : 082 BPM P-R Int : 138 ms QRS Dur : 092 ms QT Int : 350 ms P-R-T Axes : 050 005 045 degrees QTc Int : 408 ms NORMAL SINUS RHYTHM INCOMPLETE RIGHT BUNDLE BRANCH BLOCK BORDERLINE ECG WHEN COMPARED WITH ECG OF 11-JUN-2019 17:28, NO SIGNIFICANT CHANGE WAS FOUND Confirmed by Enmanuel Jeffery MD ([id number]) on 02/11/2020 9:53:59 AM Referred By: Confirmed By:Enmanuel Jeffery MD
== END 2020-02-10 18:00 | disposition home or self-care (01) ==
LOC: JER 14:23
DX: R07.9 Chest pain, unspecified (principal)
CPT/HCPCS: 71046-TC-FY; 93005; 93010; 99284-25

== ENCOUNTER 2022-05-03 21:12 | Emergency (ER) | payer OTHER ==
[2022-05-03 21:55] VITALS: BP 110/69; PULSE 88; RESP 18; TEMP 98.9; BMI 22.8
[2022-05-03 22:14] LABS: HEMATOCRIT 38.8 % (32.4-45.2); HEMOGLOBIN 13.1 G/dL (10.7-15.3); MCH 28.1 pg (25.7-33.7); MCHC 33.8 g/dl (32.0-36.0); MEAN PLT VOLUME 10.4 fl (7.5-11.1); PLATELET COUNT 180.6 10^3/uL (134-434); RBC 4.67 10^6/uL (3.60-5.2); RDW 16.1 % (11.6-15.6); WHITE BLOOD COUNT 10.3 10^3/uL (4.0-10.8)
[2022-05-03 22:27] LABS: PLATELET ESTIMATE ADEQUATE
[2022-05-03 22:31] LABS: ALBUMIN 4.5 g/dl (3.4-5.0); BILIRUBIN,TOTAL 0.5 mg/dl (0.2-1); CALCIUM 9.8 mg/dl (8.5-10); CREATININE 0.6 mg/dl (0.55-1.3); TOT PROT 7.7 g/dl (6.4-8.2)
== END 2022-05-03 23:31 | disposition home or self-care (01) ==
LOC: FER 21:12
DX: O23.41 Unspecified infection of urinary tract in pregnancy, first trimester (principal); Z3A.01 Less than 8 weeks gestation of pregnancy
CPT/HCPCS: 36415; 76801-TC; 80053; 81003; 81015; 81025; 84702; 85027; 86850; 86900; 86901; 87086; 99284-25

== ENCOUNTER 2022-05-11 15:56 | Emergency (ER) | payer OTHER ==
[2022-05-11 16:18] VITALS: BP 115/73; PULSE 101; RESP 18; TEMP 97.9; BMI 22.8
[2022-05-11] MEDS ORDERED: ACETAMINOPHEN 500 MG TABLET (FP) PO ONE (19:15)
[2022-05-11 19:26] LABS: BASO % 0.5 % (0-2.0); EOS % 0.8 % (0-4.5); HEMATOCRIT 37.9 % (32.4-45.2); HEMOGLOBIN 12.1 GM/dL (10.7-15.3); LYMPH % 28.9 % (8-40); MCH 27.1 pg (25.7-33.7); MEAN CELL VOLUME 84.5 fl (80-96); MEAN PLT VOLUME 10.4 fl (7.5-11.1); MONO % 6.3 % (3.8-10.2); NEUT % 63.5 % (42.8-82.8); PLATELET COUNT 153 10^3/uL (134-434); RBC 4.48 M/mm3 (3.60-5.2); RDW 15.8 % (11.6-15.6); WHITE BLOOD COUNT 8.5 K/mm3 (4.0-10.0)
[2022-05-11 19:40] LABS: HCG,QUALITATIVE URINE Positive
[2022-05-11 19:43] LABS: EPI CELLS 7 /uL (0-25.1); HYALINE CASTS 0 /uL (0-3.1); URINE APPEARANCE CLEAR; URINE BACTERIA 102 /uL (0-1359); URINE BILIRUBIN NEGATIVE (NEGATIVE); URINE COLOR YELLOW; URINE GLUCOSE (UA) NEGATIVE (NEGATIVE); URINE KETONE NEGATIVE (NEGATIVE); URINE LEUK ESTERASE TRACE (NEGATIVE); URINE NITRITE NEGATIVE (NEGATIVE); URINE PROTEIN NEGATIVE (NEGATIVE); URINE RBC 10 /uL (0-23.9); URINE UROBILINOGEN 0.2 mg/dL (0.2-1.0); URINE WBC 21 /uL (0-25.8)
[2022-05-11 19:46] LABS: THROAT:GRP A STREP NOT DETECTED (NOTDETECTED)
[2022-05-11 19:46] LABS: BLOOD UREA NITROGEN 10.2 mg/dL (7-18)
[2022-05-11 19:49] LABS: CALCIUM 9.4 mg/dL (8.5-10.1); CREATININE 0.5 mg/dL (0.55-1.3)
[2022-05-11] MEDS ORDERED: ACETAMINOPHEN 500 MG TABLET (FP) ONE (20:34)
== END 2022-05-11 22:09 | disposition home or self-care (01) ==
LOC: JER 15:56
DX: O99.511 Diseases of the respiratory system complicating pregnancy, first trimester (principal); J04.0 Acute laryngitis; O23.91 Unspecified genitourinary tract infection in pregnancy, first trimester; Z3A.01 Less than 8 weeks gestation of pregnancy
CPT/HCPCS: 0241U-QW; 36415; 76817-TC; 80048; 81003; 84702; 84703; 85025; 87086; 87651; 99284-25

== ENCOUNTER 2022-12-30 19:35 | Inpatient (IN) | payer OTHER ==
[2022-12-30 21:12] LABS: BASO % 0.3 % (0-2.0); EOS % 0.4 % (0-4.5); HEMATOCRIT 37.2 % (32.4-45.2); HEMOGLOBIN 12.5 GM/dL (10.7-15.3); LYMPH % 21.1 % (8-40); MCH 28.7 pg (25.7-33.7); MCHC 33.5 g/dl (32.0-36.0); MEAN CELL VOLUME 85.6 fl (80-96); MEAN PLT VOLUME 9.3 fl (7.5-11.1); NEUT % 74.2 % (42.8-82.8); PLATELET COUNT 169 10^3/uL (134-434); RBC 4.34 M/mm3 (3.60-5.2); RDW 15.4 % (11.6-15.6); WHITE BLOOD COUNT 12.3 K/mm3 (4.0-10.0)
[2022-12-30 21:23] LABS: PROTHROMBIN TIME (PATIENT) 11.6 SEC (9.7-13.0)
[2022-12-30 21:43] LABS: POTASSIUM 3.6 mmol/L (3.5-5.1)
[2022-12-30 21:45] LABS: CALCIUM 8.5 mg/dL (8.5-10.1)
[2022-12-30 21:46] LABS: BLOOD UREA NITROGEN 6.3 mg/dL (7-18)
[2022-12-30 21:49] LABS: CREATININE 0.4 mg/dL (0.55-1.3)
[2022-12-30] MEDS ORDERED: PROMETHAZINE HCL 25 MG/1 ML VIAL IVPB ONE (21:53)
[2022-12-30] MEDS ORDERED: BUTORPHANOL TARTRATE 1 MG/ML VIAL IVPB PRN (21:53)
[2022-12-30] MEDS: ELECTROLYTE-148 SOLN 1,000 ML IV SCH (22:00)
[2022-12-30 22:15] VITALS: BMI 23.6
[2022-12-31] MEDS: ELECTROLYTE-148 SOLN 1,000 ML IV SCH ×2 (06:30→12:05)
[2022-12-31] MEDS ORDERED: OXYTOCIN 30 UNITS in 0.9% NS 30 UNIT/500 ML INFUS.BAG IVPB ONE (07:34)
[2022-12-31] MEDS ORDERED: OXYTOCIN 30 UNITS in 0.9% NS 30 UNIT/500 ML INFUS.BAG IVPB SCH (07:45)
[2022-12-31] MEDS ORDERED: FENTANYL/BUPIVACAINE/NS/PF - PCEA - 50 ML DISP.SYRIN EP ONE (11:08)
[2022-12-31] MEDS ORDERED: NALOXONE HCL 0.4 MG/ML VIAL IVPUSH PRN (11:15)
[2022-12-31] MEDS ORDERED: FENTANYL/BUPIVACAINE/NS/PF - PCEA - 50 ML DISP.SYRIN EP SCH (11:15)
[2022-12-31] MEDS ORDERED: LIDO 2%/EPI 1:200000 PRESRVFRE (20 ML SDVIAL) ONE (11:16)
[2022-12-31] MEDS ORDERED: BUPIVACAINE HCL/PF 0.25% (2.5MG/ML) 10 ML VIAL ONE (11:16)
[2022-12-31] MEDS ORDERED: AMPICILLIN SODIUM 2 GM VIAL ONE (12:20)
[2022-12-31] MEDS ORDERED: AMPICILLIN - 2 GM in SODIUM CHLORIDE 100 ML IVPB ONE (12:30)
[2022-12-31] MEDS ORDERED: OXYTOCIN 20 UNITS in 0.9% NS 20 UNIT/1,000 ML INFUS.BAG IV ONE (12:58)
[2022-12-31] MEDS ORDERED: LIDOCAINE HCL 1% PRESERVATIVE FREE - 30ML VIAL ONE (12:58)
[2022-12-31] MEDS ORDERED: BENZOCAINE 20% 57 GM BOTTLE TP PRN (14:05)
[2022-12-31] MEDS ORDERED: WITCH HAZEL 50% (TUCKS) 40 PAD/JAR PAD TP PRN (14:05)
[2022-12-31] MEDS ORDERED: BISACODYL 10 MG SUPP.RECT RC PRN (14:05)
[2022-12-31] MEDS ORDERED: METHYLERGONOVINE MALEATE 0.2 MG/1 ML AMP IM PRN (14:05)
[2022-12-31] MEDS ORDERED: ACETAMINOPHEN 325 MG TABLET (FP) PO PRN (14:05)
[2022-12-31] MEDS ORDERED: oxyCODONE HCL 5 MG TABLET PO PRN (14:05)
[2022-12-31] MEDS ORDERED: BENZOCAINE 28 GM HEMORRHOIDAL OINTMENT TP PRN (14:05)
[2022-12-31] MEDS ORDERED: OXYTOCIN 20 UNITS in 0.9% NS 20 UNIT/1,000 ML INFUS.BAG IV SCH (14:15)
[2022-12-31] MEDS ORDERED: AMPICILLIN - 1 GM in SODIUM CHLORIDE 100 ML IVPB SCH (16:30)
[2022-12-31] MEDS: IBUPROFEN 600 MG TABLET (FP) PO PRN (19:33)
[2023-01-01 07:59] LABS: BASO % 0.6 % (0-2.0); EOS % 0.8 % (0-4.5); HEMATOCRIT 36.3 % (32.4-45.2); HEMOGLOBIN 11.8 GM/dL (10.7-15.3); LYMPH % 25.9 % (8-40); MCH 28.8 pg (25.7-33.7); MCHC 32.5 g/dl (32.0-36.0); MEAN CELL VOLUME 88.6 fl (80-96); MONO % 6.4 % (3.8-10.2); NEUT % 66.3 % (42.8-82.8); PLATELET COUNT 190 10^3/uL (134-434); RDW 15.3 % (11.6-15.6); WHITE BLOOD COUNT 11.3 K/mm3 (4.0-10.0)
[2023-01-01] MEDS: IBUPROFEN 600 MG TABLET (FP) PO PRN (11:06)
[2023-01-01] MEDS ORDERED: SENNOSIDES/DOCUSATE COMBO (SENNA PLUS) TABLET (UD) PO PRN (22:00)
[2023-01-01 23:03] VITALS: RESP 18; TEMP 97.7
[2023-01-02] MEDS: IBUPROFEN 600 MG TABLET (FP) PO PRN (10:20)
[2023-01-02 10:25] VITALS: BP 108/72; PULSE 78
== END 2023-01-02 12:50 | disposition home or self-care (01) | DRG 560 ==
LOC: JLDR 19:35 → J3W 12-31 16:15
PROVIDERS: ADMIT Obstetrics & Gynecology; ATTEND Obstetrics & Gynecology
PROC: 10E0XZZ Delivery of Products of Conception, External Approach (ICD-10-PCS; principal; 2022-12-31)
DX: O42.02 Full-term premature rupture of membranes, onset of labor within 24 hours of rupture (principal); O69.1XX0 Labor and delivery complicated by cord around neck, with compression, not applicable or unspecified; Z3A.40 40 weeks gestation of pregnancy; Z37.0 Single live birth
CPT/HCPCS: 36415; 80048; 85025; 85610; 85730; 86780; 86850; 86900; 86901